=== PATIENT | female | born 1995 | race African-American/Black ===

== ENCOUNTER 2017-03-29 13:59 | Observation (INO) | payer MEDICAID ==
[~2017-03-29] VITALS: Ht 170.2 cm; Wt 77.1 kg
[2017-03-29] MEDS ORDERED: PREN-88 PO (15:04)
== END 2017-03-29 15:40 | disposition home or self-care (01) ==
LOC: L&D 13:59
PROVIDERS: ADMIT Specialist; ATTEND Specialist
DX: O46.93 Antepartum hemorrhage, unspecified, third trimester (principal); R10.9 Unspecified abdominal pain; N89.8 Other specified noninflammatory disorders of vagina; Z3A.38 38 weeks gestation of pregnancy; O62.9 Abnormality of forces of labor, unspecified
CPT/HCPCS: 99281; G0378

== ENCOUNTER 2017-03-30 03:08 | Observation (INO) | payer MEDICAID ==
[~2017-03-30] VITALS: Ht 165.1 cm; Wt 77.1 kg
[~2017-03-30 03:08] MED LIST: PREN-88 PO
[2017-03-30] MEDS ORDERED: LACTATED RINGERS 1,000 ML IV SCH (04:15)
[2017-03-30] MEDS ORDERED: ACETAMINOPHEN 500MG TABLET PO ONE (04:15)
== END 2017-03-30 05:15 | disposition home or self-care (01) ==
LOC: L&D 03:08
PROVIDERS: ADMIT Specialist; ATTEND Specialist
DX: O60.03 Preterm labor without delivery, third trimester (principal); Z3A.38 38 weeks gestation of pregnancy
CPT/HCPCS: 96360; 96361; 99281; G0378; J7120

== ENCOUNTER 2017-03-30 14:11 | Inpatient (IN) | payer MEDICAID ==
[~2017-03-30] VITALS: Ht 165.1 cm; Wt 77.1 kg
[2017-03-30] MEDS ORDERED: LACTATED RINGERS 1,000 ML IV SCH (14:23)
[2017-03-30] MEDS ORDERED: DEXT 5%/LR + PITOCIN 20UNITS/L 1,000 ML IV SCH ×2 (14:23→15:15)
[2017-03-30] MEDS ORDERED: MISOPROSTOL 100MCG TABLET VG PRN (14:30)
[2017-03-30] MEDS ORDERED: METHYLERGONOVINE MALEATE 0.2 MG/ML IM PRN (14:30)
[2017-03-30] MEDS ORDERED: NALOXONE HCL 0.4 MG/ML 1ML VIAL IM PRN (14:30)
[2017-03-30] MEDS ORDERED: BUTORPHANOL TARTRATE 2 MG/ML VIAL IV PRN (14:30)
[2017-03-30] MEDS ORDERED: LIDOCAINE HCL 1% 20ML VIAL (Pyxis) INJ INFIL PRN (14:30)
[2017-03-30] MEDS ORDERED: IBUPROFEN 400MG TABLET PO PRN (15:15)
[2017-03-30] MEDS ORDERED: DIPHENHYDRAMINE 25MG CAPSULE PO PRN (15:15)
[2017-03-30] MEDS ORDERED: BENZOCAINE/LANOLIN/ALOE VERA SPRAY TOP PRN (15:15)
[2017-03-30] MEDS ORDERED: GLYCERIN/WITCH HAZEL LEAF MEDICATED PAD TOP PRN (15:15)
[2017-03-30] MEDS ORDERED: ACETAMINOPHEN WITH CODEINE 300/30MG TABLET PO PRN ×2 (15:15)
[2017-03-30] MEDS ORDERED: HEMORRHOIDAL SUPP PR PRN (15:15)
[2017-03-30] MEDS ORDERED: TETANUS, DIPHTHERIA, PERTUSSIS VAC/PF 0.5ML (>7YR OLD) IM ONE (15:15)
[2017-03-30] MEDS ORDERED: RHO(D) IMMUNE GLOBULIN 300 MCG/SYR IM PRN (15:15)
[2017-03-30] MEDS ORDERED: LANOLIN OINT 0.25 GM TUBE TOP PRN (15:15)
[2017-03-30 16:35] VITALS: BP 126/73
[2017-03-30 16:55] LABS: HEMATOCRIT. 40.4 % (36.0-48.0); HEMOGLOBIN. 13.4 g/dL (12.0-16.0); MEAN CORPUSCULAR HEMOGLOBIN 28.2 pg (28.0-32.0); MEAN CORPUSCULAR VOLUME 84.8 fL (81.0-99.0); MEAN PLATELET VOLUME 11.6 fl (7.4-10.4); PLATELET 124 x1000/uL (130-400); RED BLOOD CELL COUNT 4.77 mill/uL (4.2-5.4)
[2017-03-30 17:05] VITALS: BP 127/81
[2017-03-30 17:08] LABS: PARTIAL THROMBOPLASTIN TIME 29.3 sec (24.0-34.0); PROTHROMBIN TIME 10.2 sec
[2017-03-30 17:09] LABS: CARBON DIOXIDE 24 mEq/L (21-32); CHLORIDE 105 mEq/L (98-107)
[2017-03-30 17:37] LABS: HEPATITIS B SURFACE ANTIGEN NEGATIVE; RUBELLA IGG 148.6 IU/mL (4.99-10)
[2017-03-30 18:28] LABS: ATYPICAL LYMPHOCYTES 1
[2017-03-30 18:29] LABS: PLATELET ESTIMATE DECREASED
[2017-03-30 19:50] VITALS: BP 101/72
[2017-03-30] MEDS: DOCUSATE SODIUM 100MG CAPSULE PO SCH (20:30)
[2017-03-31 03:44] LABS: CLARITY URINE CLEAR (CLEAR); COLOR URINE RED (YELLOW); GLUCOSE URINE NEGATIVE (NEGATIVE); KETONES URINE NEGATIVE (NEGATIVE); LEUKOCYTE ESTERASE URINE 2+ (NEGATIVE); NITRITE URINE NEGATIVE (NEGATIVE); OCCULT BLOOD URINE 3+ (NEGATIVE); PROTEIN URINE TRACE (NEGATIVE); SPECIFIC GRAVITY URINE 1.007 (1.005-1.030); UROBILINOGEN URINE 0.2 E.U./dL (0.2-1.0)
[2017-03-31 03:45] VITALS: BP 110/55
[2017-03-31 03:55] LABS: *AMPHETAMINES SCREEN URINE NEGATIVE (NEGATIVE); *BARBITURATES SCREEN URINE NEGATIVE (NEGATIVE); *BENZODIAZEPINES SCREEN URINE NEGATIVE (NEGATIVE); *COCAINE SCREEN URINE NEGATIVE (NEGATIVE); CANNABINOID URINE SCREEN NEGATIVE (NEGATIVE); METHADONE URINE SCREEN NEGATIVE (NEGATIVE); OPIATES URINE SCREEN NEGATIVE (NEGATIVE); PHENCYCLIDINE URINE SCREEN NEGATIVE (NEGATIVE)
[2017-03-31 04:00] VITALS: BP 100/58
[2017-03-31 06:27] LABS: BASOPHILS % 0.1 % (0.0-2.0); EOSINOPHILS % 0.1 % (0.0-5.0); HEMATOCRIT. 34.7 % (36.0-48.0); HEMOGLOBIN. 11.4 g/dL (12.0-16.0); LYMPHOCYTES % 14.1 % (20.0-50.0); MEAN CORPUSCULAR VOLUME 85.2 fL (81.0-99.0); MEAN PLATELET VOLUME 11.6 fl (7.4-10.4); MONOCYTES % 10.4 % (2.0-8.0); NEUTROPHILS % 75.3 % (40.0-76.0); PLATELET 115 x1000/uL (130-400); RED BLOOD CELL COUNT 4.07 mill/uL (4.2-5.4); RED CELL DISTRIBUTION WIDTH 14.4 % (11.6-14.6)
[2017-03-31] MEDS: FERROUS SULFATE 325MG TABLET PO SCH ×2 (09:00→13:00)
[2017-03-31] MEDS: PRENATAL VIT/FE FUMARATE/FA TABLET PO SCH (09:00)
[2017-03-31 09:20] VITALS: BP 106/63
[2017-03-31 16:49] VITALS: BP 107/60
[2017-03-31] MEDS: DOCUSATE SODIUM 100MG CAPSULE PO SCH (21:14)
[2017-03-31 23:55] VITALS: BP 122/69
[2017-04-01 08:00] VITALS: BP 114/72
[2017-04-01] MEDS: PRENATAL VIT/FE FUMARATE/FA TABLET PO SCH (08:36)
== END 2017-04-01 12:45 | disposition home or self-care (01) | DRG 560 ==
LOC: L&D 14:11 → OBSVTOIN 14:11 → 7EST PP/OB 16:23
PROVIDERS: ADMIT Specialist; ATTEND Specialist
PROC: 10E0XZZ Delivery of Products of Conception, External Approach (ICD-10-PCS; principal; 2017-03-30 14:55)
DX: O99.02 Anemia complicating childbirth (principal); J45.909 Unspecified asthma, uncomplicated; O99.52 Diseases of the respiratory system complicating childbirth; Z88.1 Allergy status to other antibiotic agents; Z37.0 Single live birth; Z3A.38 38 weeks gestation of pregnancy
CPT/HCPCS: 36415; 80053; 80305; 81001; 85025; 85610; 85730; 86592; 86703; 86762; 86850; 86900; 87340; J2590; J3490; J7120

== ENCOUNTER 2018-11-20 16:33 | Emergency (ER) | payer MEDICAID ==
[~2018-11-20] VITALS: Ht 165.1 cm; Wt 57.0 kg
[2018-11-20 20:31] LABS: CLARITY URINE CLOUDY (CLEAR); COLOR URINE YELLOW (YELLOW); KETONES URINE TRACE (NEGATIVE); LEUKOCYTE ESTERASE URINE 1+ (NEGATIVE); NITRITE URINE NEGATIVE (NEGATIVE); OCCULT BLOOD URINE NEGATIVE (NEGATIVE); PH URINE 8.5 (4.5-8.0); PROTEIN URINE TRACE (NEGATIVE); SPECIFIC GRAVITY URINE 1.032 (1.005-1.030)
[2018-11-20 23:12] VITALS: BP 120/73
== END 2018-11-20 23:26 | disposition home or self-care (01) ==
LOC: ER 16:33
DX: A38.9 Scarlet fever, uncomplicated (principal); J45.909 Unspecified asthma, uncomplicated; R51 Headache; M54.2 Cervicalgia; Z88.1 Allergy status to other antibiotic agents
CPT/HCPCS: 81003; 81025; 99283; Z7610

== ENCOUNTER 2019-09-11 21:34 | Observation (INO) | payer MEDICAID ==
[~2019-09-11] VITALS: Ht 165.1 cm; Wt 72.6 kg
[2019-09-11] MEDS ORDERED: LACTATED RINGERS 1,000 ML IV SCH ×2 (23:14)
[2019-09-12 00:20] LABS: CLARITY URINE CLEAR (CLEAR); COLOR URINE YELLOW (YELLOW); KETONES URINE NEGATIVE (NEGATIVE); LEUKOCYTE ESTERASE URINE 1+ (NEGATIVE); NITRITE URINE NEGATIVE (NEGATIVE); OCCULT BLOOD URINE NEGATIVE (NEGATIVE); PROTEIN URINE NEGATIVE (NEGATIVE); SPECIFIC GRAVITY URINE 1.015 (1.005-1.030)
== END 2019-09-12 02:39 | disposition home or self-care (01) ==
LOC: 8 EST LDRP 21:34
PROVIDERS: ADMIT Obstetrics & Gynecology; ATTEND Obstetrics & Gynecology
DX: O26.893 Other specified pregnancy related conditions, third trimester (principal); R10.2 Pelvic and perineal pain; R10.9 Unspecified abdominal pain; Z3A.37 37 weeks gestation of pregnancy
CPT/HCPCS: 81003; 99281; G0378; 96360; 96361

== ENCOUNTER 2019-09-12 18:28 | Observation (INO) | payer MEDICAID ==
[~2019-09-12] VITALS: Ht 165.1 cm; Wt 72.6 kg
[2019-09-12] MEDS ORDERED: ONDANSETRON HCL 4MG/2ML INJ IV NR (20:00)
[2019-09-12] MEDS ORDERED: MVI, ADULT NO.1 10 ML in SODIUM CHLORIDE 0.9% 1,000 ML IV ONE ×2 (20:30)
[2019-09-12] MEDS: LACTATED RINGERS 1,000 ML IV SCH ×3 (20:55→22:36)
[2019-09-12] MEDS ORDERED: LACTATED RINGERS 1,000 ML IV SCH (21:30)
[2019-09-23] MEDS ORDERED: FERR325T6 MT (05:57)
[2019-09-23] MEDS ORDERED: IBUP-2029 MT (05:57)
[2019-09-23] MEDS ORDERED: MULT1TAB67 MT (05:57)
== END 2019-09-13 01:00 | disposition home or self-care (01) ==
LOC: 8 EST LDRP 18:28
PROVIDERS: ADMIT Specialist; ATTEND Specialist
DX: O62.9 Abnormality of forces of labor, unspecified (principal); O26.893 Other specified pregnancy related conditions, third trimester; N89.8 Other specified noninflammatory disorders of vagina; O21.2 Late vomiting of pregnancy; Z3A.37 37 weeks gestation of pregnancy
CPT/HCPCS: 96361; 96374; 99281; G0378; J2405; J3490; J7030; 96360